=== PATIENT | female | born 1940 | race Caucasian/White ===

== ENCOUNTER 2018-07-10 09:43 | Outpatient (CLI) | payer MEDICARE, BC ==
--- NOTE | 2018-07-10 11:46 | BD ---
BONE DENSITOMETRY: INDICATION: An 78-year-old female for postmenopausal osteoporosis screening. FINDINGS: Lumbar Spine: BMD (g/cm2) L1 0.901 T-Score: -0.8 L2 1.222 T-Score: 1.8 L3 1.353 T-Score: 2.4 L4 1.481 T-Score: 3.8 L1-L4 1.244 T-Score: 1.8 Femoral Neck: 0.759 T-Score: -0.8 Total Femur: 1.017 T-Score: 0.6 The total lumbar density on scan performed in 2005 was recorded at 1.210. Total femur density in 200 6 was recorded at 1.056. Impression: Bone mineral density in the lumbar spine and femoral neck are within normal range. POS: TAYO
== END 2018-07-10 09:44 | disposition home or self-care (01) ==
LOC: BICMAMMO 09:43
PROVIDERS: ATTEND Internal Medicine Rheumatology
DX: M81.0 Age-related osteoporosis without current pathological fracture (principal)
CPT/HCPCS: 77080

== ENCOUNTER 2022-12-27 14:21 | Outpatient (CLI) | payer MEDICARE, BC | END 2022-12-27 14:22 | disposition home or self-care (01) | LOC: BICMAMMO 14:21 | PROVIDERS: ATTEND Internal Medicine Rheumatology | DX: M81.0 Age-related osteoporosis without current pathological fracture (principal) | CPT/HCPCS: 77080 ==

== ENCOUNTER 2025-01-14 01:42 | Emergency (ER) | payer MEDICARE ==
[2025-01-14] MEDS ORDERED: Nitroglycerin 2% Ointment 1 INCH/1 GM Packet ONE (02:02)
[2025-01-14 02:18] LABS: #Basophils 0.08 10x3/uL (0.0-0.2); #Eosinophils 0.30 10x3/uL (0.0-0.7); #Monocytes 0.70 10x3/uL (0.11-0.59); #Neutrophils 3.56 10x3/uL (1.40-6.50); %Basophils 1.2 % (0.0-1.0); %Eosinophils 4.6 % (0.0-10.0); %Lymphocytes 28.0 % (21.0-51.0); %Monocytes 10.8 % (0.0-10.0); %Neutrophils 55.2 % (42.0-75.0); Hematocrit 37.0 % (36.0-47.0); Hemoglobin 12.2 g/dL (12.0-16.0); Mean Corpuscular Hemoglobin 29.1 pg (27.0-31.0); Mean Corpuscular Volume 88.3 fL (78.0-98.0); Platelet Count 208 10x3/uL (130-400); Red Blood Cell (RBC) Count 4.19 mill/uL (4.20-5.40); White Blood Cell (WBC) Count 6.46 10x3/uL (4.8-10.8)
[2025-01-14 02:37] LABS: ALT (SGPT) 22 U/L (Less than 34); AST (SGOT) 26 U/L (11-34); Albumin 4.0 g/dL (3.1-4.5); Alkaline Phosphatase 51 U/L (40-110); Anion Gap 14 mmol/L (10-20); BUN (Urea Nitrogen) 19 mg/dL (9.8-20.1); Bilirubin, Total 0.3 mg/dL (0.3-1.2); Calc. Creatinine Clearance 0 mL/min (70-130); Calcium 10.1 mg/dL (7.8-10.44); Carbon Dioxide 25 mmol/L (23-31); Chloride 104 mmol/L (98-107); Globulin 2.4 g/dL (2.4-3.5); Glucose 103 mg/dL (83-110); Potassium 3.6 mmol/L (3.5-5.1); Sodium 139 mmol/L (136-145)
== END 2025-01-14 07:45 | disposition home or self-care (01) ==
LOC: ERS 01:42
DX: I10 Essential (primary) hypertension (principal); I25.10 Atherosclerotic heart disease of native coronary artery without angina pectoris; Z79.899 Other long term (current) drug therapy
CPT/HCPCS: 36415; 71045; 80053; 84484; 85025; 93005

== ENCOUNTER 2025-04-16 18:05 | Inpatient (IN) | payer MEDICARE ==
[2025-04-16] MEDS ORDERED: Lidocaine 1% PF 5 ML VIAL ONE (19:25)
[2025-04-16] MEDS ORDERED: CEFAZOLIN 2 GM VIAL ONE (21:21)
[2025-04-16 21:54] LABS: #Basophils 0.06 10x3/uL (0.0-0.2); #Eosinophils 0.27 10x3/uL (0.0-0.7); #Monocytes 0.65 10x3/uL (0.11-0.59); #Neutrophils 5.04 10x3/uL (1.40-6.50); %Basophils 0.8 % (0.0-1.0); %Eosinophils 3.7 % (0.0-10.0); %Lymphocytes 16.9 % (21.0-51.0); %Monocytes 8.9 % (0.0-10.0); %Neutrophils 69.4 % (42.0-75.0); Hematocrit 35.1 % (36.0-47.0); Hemoglobin 11.7 g/dL (12.0-16.0); Mean Corpuscular Hemoglobin 29.3 pg (27.0-31.0); Mean Corpuscular Volume 87.8 fL (78.0-98.0); Platelet Count 221 10x3/uL (130-400); Red Blood Cell (RBC) Count 4.00 mill/uL (4.20-5.40); White Blood Cell (WBC) Count 7.27 10x3/uL (4.8-10.8)
[2025-04-16] MEDS ORDERED: PROPOFOL 20 ML ONE (22:12)
[2025-04-16 22:13] LABS: ALT (SGPT) 24 U/L (Less than 34); AST (SGOT) 33 U/L (11-34); Albumin 3.9 g/dL (3.1-4.5); Alkaline Phosphatase 53 U/L (40-110); Anion Gap 7 mmol/L (10-20); BUN (Urea Nitrogen) 17 mg/dL (9.8-20.1); Bilirubin, Total 0.2 mg/dL (0.3-1.2); Calc. Creatinine Clearance 0 mL/min (70-130); Calcium 9.5 mg/dL (7.8-10.44); Carbon Dioxide 28 mmol/L (23-31); Chloride 106 mmol/L (98-107); Globulin 2.4 g/dL (2.4-3.5); Glucose 108 mg/dL (83-110); Potassium 3.4 mmol/L (3.5-5.1); Sodium 138 mmol/L (136-145)
[2025-04-16] MEDS ORDERED: Ketamine In 0.9 % NaCl 50 MG/5 ML SYRINGE ONE (22:13)
[2025-04-16 22:28] LABS: INR-International Normal Ratio 1.0; Prothrombin Time 13.3 sec (12.0-14.7)
[2025-04-16 22:29] LABS: PTT 30.1 sec (22.9-36.1)
[2025-04-16] MEDS ORDERED: Bacitracin Zinc Ointment 30 gm TUBE ONE (23:02)
[2025-04-16] MEDS ORDERED: CEFAZOLIN 1 GM VIAL ONE (23:09)
[2025-04-17] MEDS ORDERED: TETANUS, DIPHTHERIA TOX,ADULT (TDVAX) 0.5 ML VIAL IM ONE (00:47)
[2025-04-17] MEDS ORDERED: HYDROcodone/Acetaminophen 10/325 mg Tablet PO PRN (00:47)
[2025-04-17] MEDS ORDERED: Communication Order-Pharmacy FS SCH (01:00)
[2025-04-17] MEDS ORDERED: Vancomycin 1 GM in Premix 1 BAG IVPB SCH (01:00)
[2025-04-17] MEDS ORDERED: Pharmacy to Dose: VANC IVPB PRN (02:12)
[2025-04-17] MEDS ORDERED: Vancomycin 1.5 GM / NS 500ML VIAL-2-BAG IVPB SCH (05:00)
[2025-04-17 06:59] VITALS: BMI 23.4
[2025-04-17] MEDS: Acetaminophen 325 MG TAB PO PRN (08:12)
[2025-04-17] MEDS: Aspirin 81 mg Enteric Coated Tablet PO SCH ×2 (08:12→08:44)
[2025-04-17] MEDS: TETANUS AND DIPHTHERIA TOX/PF 0.5 ML DISP.SYRIN IM SCH (08:14)
[2025-04-17] MEDS ORDERED: Nitroglycerin 0.4 MG TAB (25 Tab Bottle) SL PRN (08:17)
[2025-04-17] MEDS ORDERED: [UNRECOGNIZED DRUG - OTHER] PO SCH (08:30)
[2025-04-17] MEDS: Multivitamin W/ Minerals 1 TAB PO SCH (08:41)
[2025-04-17] MEDS: Rosuvastatin 5 MG TAB PO SCH (08:41)
[2025-04-17] MEDS: Losartan 25 MG TAB PO SCH (08:42)
[2025-04-17] MEDS: Calcium Carbonate 600 MG + Vit D TAB PO SCH (08:43)
[2025-04-17] MEDS: CO Q-10 CAPSULE 100 MG PO SCH (08:43)
[2025-04-17] MEDS: Carvedilol 6.25 MG TAB PO SCH (08:43)
[2025-04-17] MEDS: TICAGRELOR 90 MG TABLET PO SCH (08:44)
[2025-04-17] MEDS: Acetaminophen 325 MG TAB PO SCH (08:44)
[2025-04-17] MEDS ORDERED: Non-Formulary Item 1 EACH (Calcium Carbonate/Vitamin D3 [Calcium 500 + Vitamin D3 400] 12 PO SCH (09:00)
[2025-04-17] MEDS ORDERED: Non-Formulary Item 1 EACH (Ubidecarenone [Co Q-10] 200 MG Capsule) PO SCH (09:00)
[2025-04-17] MEDS ORDERED: Non-Formulary Item 1 EACH (Olmesartan Medoxomil [Benicar] 40 MG Tablet) PO SCH (09:00)
[2025-04-17] MEDS ORDERED: [UNRECOGNIZED DRUG - OTHER] TOP SCH (09:00)
[2025-04-17] MEDS ORDERED: Non-Formulary Item 1 EACH (Acetaminophen [Tylenol Arthritis] 650 MG Tablet.Er) PO SCH (09:00)
[2025-04-17] MEDS: Triamterene/Hydrochlorothiazide 37.5 mg/25 mg Tablet PO SCH (09:26)
[2025-04-17 12:08] VITALS: TEMP 97.8
[2025-04-17 15:51] VITALS: BP 149/78
[2025-04-18] MEDS ORDERED: Vancomycin 1.25 GM / NS 250 ML VIAL-2-BAG IVPB SCH (06:00)
== END 2025-04-17 15:55 | disposition home or self-care (01) | DRG 514 ==
LOC: ERS 18:05 → SDC/OP 22:50 → SURG B 04-17 00:47
PROVIDERS: ADMIT Orthopaedic Surgery Hand Surgery; ATTEND Orthopaedic Surgery Hand Surgery
PROC: 0PST04Z Reposition Right Finger Phalanx with Internal Fixation Device, Open Approach (ICD-10-PCS; principal; 2025-04-16)
PROC: 0HBFXZZ Excision of Right Hand Skin, External Approach (ICD-10-PCS; 2025-04-16)
PROC: 3E03329 Introduction of Other Anti-infective into Peripheral Vein, Percutaneous Approach (ICD-10-PCS; 2025-04-17)
DX: S62.616B Displaced fracture of proximal phalanx of right little finger, initial encounter for open fracture (principal); Z88.0 Allergy status to penicillin; Z88.8 Allergy status to other drugs, medicaments and biological substances; Z79.82 Long term (current) use of aspirin; Z79.899 Other long term (current) drug therapy; Z88.5 Allergy status to narcotic agent; W01.0XXA Fall on same level from slipping, tripping and stumbling without subsequent striking against object, initial encounter; S80.01XA Contusion of right knee, initial encounter
CPT/HCPCS: 36415; 70450; 70486; 72125; 80053; 85025; 85610; 85730; 86850; 86900; 86901; 93005; 96365; A6223; C1894; J0665; J0690; J2250; J2704; J3010; J3373; J3490; J7042; J7050